=== PATIENT | female | born 1980 | race Hispanic/Latino ===

== ENCOUNTER 2018-11-17 17:54 | Emergency (ER) | payer MEDICAID, OTHER ==
[2018-11-17] MEDS ORDERED: PREDNISONE 20 MG TABLET ONE (18:06)
== END 2018-11-17 18:11 | disposition home or self-care (01) ==
LOC: EDH 17:54
DX: T63.481A Toxic effect of venom of other arthropod, accidental (unintentional), initial encounter (principal); Y92.89 Other specified places as the place of occurrence of the external cause